=== PATIENT | female | born 1975 | race Caucasian/White ===

== ENCOUNTER → 2024-03-29 | Outpatient (CLI) | payer OTHER | LOC: RAD 09:29 | DX: M25.552 Pain in left hip (principal) ==

== ENCOUNTER 2024-05-02 17:41 | Emergency (ER) | payer BC ==
[~2024-05-02] VITALS: Ht 172.7 cm; Wt 77.3 kg
[2024-05-02] MEDS ORDERED: BUSPIRONE HYDRO10 MG PO (17:48)
[2024-05-02] MEDS ORDERED: DOXYCYCLINE MO100 M3 PO (17:48)
[2024-05-02] MEDS ORDERED: HYDROXYZINE HCL25 M1 PO (17:48)
[2024-05-02] MEDS ORDERED: WELLBUTRIN XL150 M2 PO (17:48)
[2024-05-02] MEDS ORDERED: DIFLUCAN100 M1 PO (18:41)
[2024-05-02 19:09] VITALS: BP 109/74
== END 2024-05-02 19:15 | disposition home or self-care (01) ==
LOC: ED 17:41
DX: B37.31 Acute candidiasis of vulva and vagina (principal); L70.9 Acne, unspecified